=== PATIENT | female | born 1970 | race Native Hawaiian/Other Pacific Islander ===

== ENCOUNTER 2022-08-30 16:44 | Outpatient (CLI) | payer BC | END 2022-08-30 19:27 | disposition home or self-care (01) | LOC: CT 16:44 | PROVIDERS: ATTEND Internal Medicine | DX: R14.0 Abdominal distension (gaseous) (principal); R19.7 Diarrhea, unspecified; R10.13 Epigastric pain; R10.32 Left lower quadrant pain; R10.12 Left upper quadrant pain; R10.31 Right lower quadrant pain; R10.11 Right upper quadrant pain | CPT/HCPCS: 82565; 84520; Q9963 ==